=== PATIENT | male | born 1945 | race Caucasian/White ===

== ENCOUNTER 2024-02-05 11:50 | Emergency (ER) | payer MEDICARE, OTHER, SELFPAY ==
[2024-02-05 11:52] VITALS: BP 164/88; BMI 21.3
[2024-02-05 12:22] LABS: % Eosinophils 1.9 % (0-6); % Immature Granulocytes 3.7 % (0-0.5); % Lymphocytes 13.5 % (20.5-51.1); % Monocytes 9.9 % (1.7-9.3); Absolute Basophils 0.1 10^3/uL (0-0.2); Absolute Eosinophils 0.2 10^3/uL (0-0.7); Absolute Immature Granulocytes 0.4 10^3/uL (0-0.05); Absolute Lymphocytes 1.5 10^3/uL (1.2-3.4); Absolute Monocytes 1.1 10^3/uL (0.1-0.6); Absolute Neutrophils 7.5 10^3/uL (1.4-6.5); Hematocrit 45.4 % (39.0-52.0); Hemoglobin 16.6 g/dL (13.0-18.0); Mean Corp Hgb Conc. 36.6 g/dL (33.0-37.0); Mean Corpuscular Hgb 31.4 pg (27.0-31.0); Nucleated Red Blood Cells % 0 % (-); Red Blood Cell Count 5.28 10^6/uL (4.70-6.10); Red Cell Dist. Width 13.1 % (11.5-14.5); White Blood Cell Count 10.8 10^3/uL (4.8-10.8)
[2024-02-05 12:29] LABS: INR 1.07; PT 13.7 Sec (11.4-14.6)
[2024-02-05 12:39] LABS: ALT (SGPT) 34 U/L (0-50); AST (SGOT) 25 U/L (17-59); Albumin 5.1 g/dl (3.5-5.0); Alkaline Phosphatase 31 U/L (38-126); Blood Urea Nitrogen 23 mg/dl (9-20); Calcium 10.3 mg/dl (8.4-10.2); Carbon Dioxide 23 mmol/L (22-30); Chloride 104 mmol/L (98-107); Estimated Creatinine Clearance 51 ml/min; Glucose 147 mg/dl (70-99); Potassium 5.2 mmol/L (3.5-5.1); Sodium 138 mmol/L (135-145); Total Bilirubin 1.1 mg/dl (0.2-1.3); eGFR > 60.00
[2024-02-05 12:43] LABS: Mean Platelet Volume 14.1 fL (7.4-10.4); Platelet Count 39 10^3/uL (130-400)
[2024-02-05 12:54] VITALS: BP 132/73
--- NOTE | 2024-02-05 13:35 | ED.GENMED ---
History of Present Illness
General
Chief Complaint: Abnormal Lab Value
Source: patient and spouse
Exam Limitations: none
Time Seen by Provider: 02/05/24 12:37
History of Present Illness
History of Present Illness:
78-year-old male with history of R-sided pi�a who presents because outpatient labs had shown platelets down to 16,000. Patient and spouse state that the labs were checked 2 weeks ago. After playing phone tag with hematology and the primary care
doctor he was advised to come to the hospital. Patient offers no symptoms. He states he does bruise easily but otherwise no hematochezia, melena, hematuria or hemoptysis. Patient states he did have hepatitis when he was younger and was exposed to
agent orange
Past History
Past History
ED Past Medical History: NIDDM and Other (Agent orange exposure, hepatitis)
ED Past Surgical History: None
Social History
Alcohol: Occasional
Phy Exam
Physical Exam
Physical Exam:
CONSTITUTIONAL Patient alert and oriented to person, place and time. Well-appearing. Vital signs reviewed.
HEAD atraumatic, normocephalic.
EYES eyelids normal to inspection, Extraocular muscles intact, Conjunctiva normal, Sclera normal.
NECK normal range of motion, Trachea midline, no jugular venous distention.
RESPIRATORY CHEST No respiratory distress noted, Chest expansion equal, Bilateral breath sounds clear.
CARDIOVASCULAR regular rate and rhythm, Heart sounds normal.
ABDOMEN abdomen nontender, Bowel sounds normal. No distention.
BACK normal inspection, no obvious deformities
UPPER EXTREMITY range of motion normal, Motor strength normal, no cyanosis, no edema.
LOWER EXTREMITY range of motion normal, Motor strength normal, no cyanosis, no edema.
NEURO Speech normal, No focal motor deficits, [place] coma scale 15, Memory normal, Cranial Nerves intact to screening exam.
SKIN skin warm, dry, and normal in color. Very few areas of bruising to the forearm at expected areas of contact
PSYCHIATRIC patient oriented to person place and time, Normal affect.
Course
Orders/Labs/Results
Orders:
Orders
02/05/24 12:00
Type+Screen Urgent
Complete Blood Count/With Diff Urgent
Comprehensive Metabolic Panel Urgent
PTT Urgent
Prothrombin Time Urgent
Abnormal Lab Results
02/05/24
12:00
MCH 31.4 H pg
(27.0-31.0)
Plt Count 39 L 10^3/uL
(130-400)
MPV 14.1 H fL
(7.4-10.4)
Abs Immat Gran (auto) 0.4 H 10^3/uL
(0-0.05)
Absolute Neuts (auto) 7.5 H 10^3/uL
(1.4-6.5)
Absolute Monos (auto) 1.1 H 10^3/uL
(0.1-0.6)
Immature Gran % 3.7 H %
(0-0.5)
Lymphocytes % 13.5 L %
(20.5-51.1)
Monocytes % 9.9 H %
(1.7-9.3)
Potassium 5.2 H mmol/L
(3.5-5.1)
BUN 23 H mg/dl
(9-20)
Glucose 147 H mg/dl
(70-99)
Calcium 10.3 H mg/dl
(8.4-10.2)
Alkaline Phosphatase 31 L U/L
(38-126)
Albumin 5.1 H g/dl
(3.5-5.0)
02/05/24 12:00
02/05/24 12:00
Vital Signs
Initial and Last Documented VS:
Initial Vital Signs
Temp Pulse Resp BP Pulse Ox
98.2 F 72 16 164/88 96
02/05/24 11:52 02/05/24 11:52 02/05/24 11:52 02/05/24 11:52 02/05/24 11:52
Last Documented Vital Signs
Temp Pulse Resp BP Pulse Ox
98.2 F 69 17 132/73 95
02/05/24 11:52 02/05/24 12:54 02/05/24 12:54 02/05/24 12:54 02/05/24 12:54
MDM/Problems Addressed
MDM/Problems Addressed:
Chronic thrombocytopenia
*Pulse Oximetry
Patient hypoxic: no
*Critical Care Note
Total Time (30-74mins, 75-104mins- exclusive of procedures): Not Applicable
Data Reviewed
Review of Other/Old Records Reveals: Records (Previous oncologic/hematologic consult reviewed from recent admission) and Discharge Summary (Recent discharge summary reviewed)
Source: patient and spouse
Further Testing Considered But Not Given:
Consider type and cross but platelet level is increasing and patient is asymptomatic
Patient Management
Discussion with other providers: [employer] (Case discussed with hematology for follow-up)
Escalation/DeEscalation of care consider admission/obs:
Stable, case was discussed with hematology who will follow as inpatient. No symptoms of bleeding. Platelets improving. Okay for discharge
ED Attending Note
-
Portions of this chart may have been created with voice recognition software.� Occasional wrong word or��sound alike� substitutions may have occurred due to the inherent limitations of voice recognition software.
Discharge Plan
Departure
Patient Disposition: Home (Routine Discharge)
Date of Disposition: 02/05/24
Time of Disposition: 13:40
Patient with high blood pressure during this ER visit?: No
Discharge Problem:
Chronic thrombocytopenia
Instructions: Platelet count
Prescriptions:
No Action
budesonide-formoterol [Symbicort] 160-4.5 mcg/actuation HFA aerosol inhaler
2 puff inhalation BID Qty: 10.2 0RF
albuterol sulfate 90 mcg/actuation HFA aerosol inhaler
2 puff inhalation Q6H PRN (Reason: wheezing) Qty: 6.7 0RF
metformin 500 mg Tablet
500 mg PO BID@0800,1700 Qty: 60 0RF
glipizide 5 mg Tablet
5 mg PO BID@0800,1700 Qty: 60 0RF
Januvia 100 mg Tablet
100 mg PO DAILY Qty: 30 0RF
insulin glargine [Lantus Solostar U-100 Insulin] 100 unit/mL (3 mL) insulin pen
12 unit SC QPM Qty: 15 0RF
Referrals:
Marcello Alcala MD [Family Provider] -
Kendra Gil DO [Active] -
Activity Restrictions/Additional Instructions:
Thrombocytopenia'
Please see your doctor and hematology in follow-up in the next 1 week. Return for bleeding of any kind, weakness, shortness of breath or any other concerns.
Interventions
Interventions:
*Risk Screen - Suicide Last Done: 02/05/24 11:52
*Neglect/Abuse Screening Last Done: 02/05/24 11:52
ED- Fall Risk Assessment Last Done: 02/05/24 12:54
Discharge Date and Time
Print Language: CAMEROONIAN
== END 2024-02-05 13:53 | disposition home or self-care (01) ==
LOC: EMR 11:50
PROVIDERS: Student in an Organized Health Care Education/Training Program; EMERGENCY PHYSICIAN Emergency Medicine; FAMILY PHYSICIAN Family Medicine
DX: D69.6 Thrombocytopenia, unspecified (principal); E11.9 Type 2 diabetes mellitus without complications; Z57.4 Occupational exposure to toxic agents in agriculture
CPT/HCPCS: 99283; 80053; 85025; 85610; 85730; 86850; 86900; 86901

== ENCOUNTER → 2024-03-01 09:21 | Outpatient (REF) | payer MEDICARE, OTHER, SELFPAY ==
[2024-03-01 10:02] VITALS: BP 157/88; BP_SYST 91
[2024-03-01 10:03] LABS: INR 1.03; PT 13.5 Sec (11.4-14.6)
[2024-03-01 10:26] LABS: % Basophils 0.9 % (0-2); % Eosinophils 3.3 % (0-6); % Lymphocytes 16.1 % (20.5-51.1); % Monocytes 9.4 % (1.7-9.3); % Neutrophils 67.3 % (42.2-75.2); Absolute Basophils 0.1 10^3/uL (0-0.2); Absolute Eosinophils 0.3 10^3/uL (0-0.7); Absolute Immature Granulocytes 0.3 10^3/uL (0-0.05); Absolute Lymphocytes 1.4 10^3/uL (1.2-3.4); Absolute Monocytes 0.8 10^3/uL (0.1-0.6); Absolute Neutrophils 5.8 10^3/uL (1.4-6.5); Hematocrit 45.6 % (39.0-52.0); Hemoglobin 16.4 g/dL (13.0-18.0); Mean Corpuscular Hgb 31.1 pg (27.0-31.0); Mean Corpuscular Volume 86.4 fL (80.0-94.0); Nucleated Red Blood Cells % 0 % (-); Platelet Count 53 10^3/uL (130-400); Red Blood Cell Count 5.28 10^6/uL (4.70-6.10); Red Cell Dist. Width 12.7 % (11.5-14.5); White Blood Cell Count 8.6 10^3/uL (4.8-10.8)
[2024-03-01] MEDS: ATIVAN 0.5 MG IV (10:42)
[2024-03-01] MEDS: NSS (PRESERVATIVE FREE) 0.25 ML IV (10:43)
[2024-03-01 11:33] VITALS: BP 161/95
== END ==
LOC: RADI 09:21
PROVIDERS: ATTENDING PHYSICIAN Internal Medicine Hematology & Oncology
DX: D69.6 Thrombocytopenia, unspecified (principal); D68.8 Other specified coagulation defects
CPT/HCPCS: 88305; 88311; 88312; 36415; 38222; 77012; 85025; 85610; 88313; 88341; 88342

== ENCOUNTER → 2024-05-11 17:13 | Outpatient (REF) | payer MEDICARE, OTHER, SELFPAY ==
[2024-05-11 18:10] LABS: % Basophils 0.9 % (0-2); % Eosinophils 3.2 % (0-6); % Immature Granulocytes 2.8 % (0-0.5); % Monocytes 8.1 % (1.7-9.3); Absolute Basophils 0.1 10^3/uL (0-0.2); Absolute Eosinophils 0.3 10^3/uL (0-0.7); Absolute Immature Granulocytes 0.3 10^3/uL (0-0.05); Absolute Lymphocytes 1.3 10^3/uL (1.2-3.4); Absolute Monocytes 0.8 10^3/uL (0.1-0.6); Absolute Neutrophils 6.7 10^3/uL (1.4-6.5); Hematocrit 43.1 % (39.0-52.0); Hemoglobin 15.5 g/dL (13.0-18.0); Mean Corpuscular Hgb 30.8 pg (27.0-31.0); Mean Corpuscular Volume 85.5 fL (80.0-94.0); Nucleated Red Blood Cells % 0 % (-); Platelet Count 30 10^3/uL (130-400); Red Blood Cell Count 5.04 10^6/uL (4.70-6.10); Red Cell Dist. Width 12.9 % (11.5-14.5); White Blood Cell Count 9.5 10^3/uL (4.8-10.8)
== END ==
LOC: REG 17:13
PROVIDERS: ATTENDING PHYSICIAN Internal Medicine Hematology & Oncology; FAMILY PHYSICIAN Family Medicine
DX: D69.6 Thrombocytopenia, unspecified (principal)
CPT/HCPCS: 36415; 85025

== ENCOUNTER 2025-02-03 06:22 | Day surgery (SDC) | payer OTHER, SELFPAY ==
[2025-02-03 09:28] LABS: Glucose - Point of Care 211 mg/dl (70-99)
== END 2025-02-03 12:24 | disposition home or self-care (01) ==
LOC: GI 06:22
PROVIDERS: ATTENDING PHYSICIAN Student in an Organized Health Care Education/Training Program
DX: K44.9 Diaphragmatic hernia without obstruction or gangrene (principal); K22.89 Other specified disease of esophagus; K20.90 Esophagitis, unspecified without bleeding; K22.81 Esophageal polyp; K31.89 Other diseases of stomach and duodenum; K29.50 Unspecified chronic gastritis without bleeding; Z13.810 Encounter for screening for upper gastrointestinal disorder
CPT/HCPCS: 43239; 88305; 82962; 88342

== ENCOUNTER → 2025-03-23 16:29 | Outpatient (REF) | payer OTHER, SELFPAY ==
[2025-03-23 17:31] LABS: Hematocrit 47.6 % (39.0-52.0); Hemoglobin 16.6 g/dL (13.0-18.0); Mean Corp Hgb Conc. 34.9 g/dL (33.0-37.0); Mean Corpuscular Volume 88.0 fL (80.0-94.0); Red Cell Dist. Width 12.5 % (11.5-14.5)
[2025-03-23 17:34] LABS: ALT (SGPT) 67 U/L (0-50); AST (SGOT) 31 U/L (17-59); Albumin 4.9 g/dl (3.5-5.0); Alkaline Phosphatase 23 U/L (38-126); Blood Urea Nitrogen 23 mg/dl (9-20); Calcium 9.4 mg/dl (8.4-10.2); Carbon Dioxide 26 mmol/L (22-30); Chloride 103 mmol/L (98-107); Glucose 200 mg/dl (70-99); Lipase 39 U/L (23-300); Potassium 5.0 mmol/L (3.5-5.1); Sodium 138 mmol/L (135-145); Total Protein 7.8 g/dl (6.3-8.2); eGFR > 60.00
[2025-03-23 17:58] LABS: Platelet Count 38 10^3/uL (130-400)
[2025-03-24 09:25] LABS: Glycohemoglobin (HgbA1c) 8.5 % (4.0-5.6)
== END ==
LOC: REG 16:29
PROVIDERS: ATTENDING PHYSICIAN Student in an Organized Health Care Education/Training Program; FAMILY PHYSICIAN Family Medicine; REFERRING PHYSICIAN Family Medicine
DX: R11.14 Bilious vomiting (principal)
CPT/HCPCS: 36415; 80053; 83036; 83690; 84439; 84443; 85027

== ENCOUNTER → 2025-06-26 15:25 | Outpatient (REF) | payer OTHER, SELFPAY ==
[2025-06-26 16:24] LABS: Hematocrit 46.2 % (39.0-52.0); Hemoglobin 16.0 g/dL (13.0-18.0); Mean Corp Hgb Conc. 34.6 g/dL (33.0-37.0); Mean Corpuscular Volume 87.2 fL (80.0-94.0); Nucleated Red Blood Cells % 0 % (-); Red Cell Dist. Width 12.9 % (11.5-14.5)
[2025-06-26 16:44] LABS: Platelet Count 59 10^3/uL (130-400)
== END ==
LOC: REG 15:25
PROVIDERS: ATTENDING PHYSICIAN Internal Medicine Hematology & Oncology; FAMILY PHYSICIAN Family Medicine
DX: D69.6 Thrombocytopenia, unspecified (principal)
CPT/HCPCS: 36415; 85025